=== PATIENT | male | born 1970 | race Caucasian/White ===

== ENCOUNTER 2016-12-11 12:34 | Emergency (ER) | payer OTHER ==
[~2016-12-11] VITALS: Ht 180.3 cm; Wt 95.4 kg
[~2016-12-11 12:34] MED LIST: LEXAPRO10 MG PO; MORPHINE; NEURONTIN600 MG PO; NOR10T PO; SOMA350 MG PO; TORADOL10 MG PO; TRAMADOL HCL50 MG PO
[2016-12-11 16:25] LABS: BASOPHIL % 0.2 % (0-2); PLATELET COUNT 273 x10^3mcL (130-400); RED CELL DISTRIBUTION WIDTH 12.5 % (11.5-14.5)
[2016-12-11 16:31] LABS: CALCIUM 9.4 mg/dL (8.5-10.1); CARBON DIOXIDE 27.2 mmol/L (21-32); CHLORIDE SERUM 105 mmol/L (98-107); GFR1 > 60 mL/min; GLUCOSE SERUM 104 mg/dL (74-106); POTASSIUM SERUM 4.9 mmol/L (3.5-5.1); SODIUM SERUM 142 mmol/L (136-145)
[2016-12-11 16:37] LABS: ALBUMIN 4.1 g/dL (3.4-5.0); ALKALINE PHOSPHATASE 71 U/L (46-116); ALT/SGPT 33 U/L (16-63); AST/SGOT 24 U/L (15-37); BILIRUBIN TOTAL 0.82 mg/dL (0.20-1.00)
[2016-12-11 16:42] LABS: TOTAL PROTEIN, SERUM 8.9 g/dL (6.4-8.2)
[2016-12-11 18:10] VITALS: BP 112/79
== END 2016-12-11 18:10 | disposition home or self-care (01) ==
LOC: ED 12:34
PROVIDERS: Emergency Medicine
DX: J20.9 Acute bronchitis, unspecified (principal); R51 Headache; F17.200 Nicotine dependence, unspecified, uncomplicated; I10 Essential (primary) hypertension; M79.7 Fibromyalgia; Z71.6 Tobacco abuse counseling
CPT/HCPCS: 36415; 83880; 99406; J1885; J3010; J7512; J7613; J7644; Q0092; Q0162